=== PATIENT | male | born 1965 | race Caucasian/White ===

== ENCOUNTER 2024-11-12 13:52 | Observation (INO) | payer BC, SELFPAY ==
[2024-11-12 15:42] LABS: Absolute Basophils 0.1 K/uL (0-0.5); Absolute Lymphocytes (CBC) 1.2 K/uL (0.7-4.9); Absolute Monocytes 1.3 K/uL (0.1-1.3); Absolute Neutrophil 10.5 K/uL (1.8-8.0); Basophils % 0.4 % (0-1.3); Eosinophils % 0.3 % (0-4.4); Hematocrit 43.3 % (39.6-49.0); Hemoglobin 15.1 g/dL (13.6-17.9); Lymphocytes % 9.2 % (15.3-44.8); MCH 31.6 pg (27.0-35.0); MCHC 34.9 g/dL (32.0-36.0); MCV 90.4 fL (80-100); MPV 6.6 fL (7.6-11.3); Monocytes % 10.1 % (3.3-12.3); Platelets 227 thou/uL (152-406); RBC Red Blood Cell Count 4.79 M/uL (4.33-5.43); Red Cell Distribution Width 15.1 % (12.1-15.2)
[2024-11-12] MEDS ORDERED: CEFTRIAXONE 1000 MG/VIAL ONE (15:46)
[2024-11-12] MEDS ORDERED: CLINDAMYCIN 600MG/D5W 50 ML IV ONE ×2 (15:47→21:17)
[2024-11-12] MEDS ORDERED: MORPHINE 4 MG/ML SYR ONE (15:47)
[2024-11-12] MEDS ORDERED: NA CHLORIDE 0.9% 50 ML ONE (15:47)
[2024-11-12] MEDS ORDERED: ONDANSETRON 4 MG/2 ML VIAL ONE (15:47)
[2024-11-12 15:52] LABS: PT Prothrombin Time 12.4 SECONDS (10-13.0); PTT, Activated Partial Thromb 33.7 SECONDS (27.2-37.4); Protime INR 1.09
[2024-11-12] MEDS ORDERED: NA CHLORIDE 0.9% 1,000 ML ONE ×2 (15:58→21:16)
--- NOTE | 2024-11-12 16:07 | RAD REPORT ---
EXAM: Hand Left 3 View HISTORY: ANIMAL BITE COMPARISON: None FINDINGS: Bones: No acute fracture identified. Alignment:No significant malalignment. Degenerative changes:Degenerative changes are present at the fifth PIP joint. Other: No radiopaque foreign body. IMPRESSION: No acute osseous abnormality involving the imaged hand. No radiopaque foreign body.
[2024-11-12 16:08] LABS: Albumin 3.6 g/dL (3.4-5.0); Albumin/Globulin Ratio 1.1 (1.1-1.8); Anion Gap 8.8 mEq/L (5.0-15.0); Bilirubin Total 0.7 mg/dL (0.2-1.0); Globulin 3.3 g/dL (2.3-3.5); Potassium 3.8 mEq/L (3.5-5.1); Protein, Total 6.9 g/dL (6.4-8.2)
--- NOTE | 2024-11-12 16:16 | ER ---
Nurse's Notes [facility] Name: Brain Blnut Age: 58 yrs Sex: Male : 1965 Arrival Date: 11/12/2024 Time: 13:52 Bed 20 Private MD: Diagnosis: Bitten by cat;Cellulitis of right upper limb Presentation: 11/12 14:10 Chief complaint: Patient states: After a cat bite to his L hand on , he went to [facility]gent care and got antibiotics. Site is red, swollen, hot, and very painful now. No fever. Coronavirus screen: Client denies travel out of the [place] in the last 14 days. At this time, the client does not indicate any symptoms associated with coronavirus-19. Ebola Screen: Patient denies travel to an Ebola-affected area in the 21 days before illness onset. Initial Sepsis Screen: Does the patient meet any 2 criteria? No. Patient's initial sepsis screen is negative. Does the patient have a suspected source of infection? No. Patient's initial sepsis screen is negative. Risk Assessment: Do you want to hurt yourself or someone else? Patient reports no desire to harm self or others. Onset of symptoms was November 10, 2024. 14:10 Method Of Arrival: Ambulatory [facility] 14:10 Acuity: HELEN 3 ll1 Triage Assessment: 14:12 Bite description: bite sustained to left hand by a cat. General: Appears distressed, ll1 uncomfortable, Behavior is calm, cooperative, appropriate for age. Pain: Complains of pain in left hand Pain currently is 8 out of 10 on a pain scale. Quality of pain is described as aching, throbbing. Derm: cellulitis L hand. s/p cat bite Reports pain. Musculoskeletal: Reports pain in left hand. Injury Description: Puncture sustained to left hand. 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 - Infectious Disease History:: Denies. - Social history:: Smoking status: Patient reports the use of cigarette tobacco products, cigars. Screenin:30 [facility] ED Fall Risk Assessment (Adult) History of falling in the last 3 months, cm10 including since admission No falls in past 3 months (0 pts) Confusion or Disorientation No (0 pts) Intoxicated or Sedated No (0 pts) Impaired Gait No (0 pts) Mobility Assist Device Used No (0 pt) Altered Elimination No (0 pt) Score/Fall Risk Level 0 - 2 = Low Risk Oriented to surroundings, Maintained a safe environment, Hourly rounding (assess needs \T\ fall precautionary measures) done. Abuse screen: Denies threats or abuse. Denies injuries from another. Nutritional screening: No deficits noted. Tuberculosis screening: No symptoms or risk factors identified. Assessment: 15:16 Reassessment: Patient and/or family updated on plan of care and expected duration. Pain ll1 level reassessed. 15:30 General: Appears in no apparent distress. comfortable, Behavior is calm, cooperative, cm10 appropriate for age. Pain: Complains of pain in left hand Pain currently is 8 out of 10 on a pain scale. Neuro: No deficits noted. Level of Consciousness is awake, alert, obeys commands, Oriented to person, place, time, situation, Appropriate for age. Respiratory: No deficits noted. Airway is patent Respiratory effort is even, unlabored, Respiratory pattern is regular, symmetrical. Derm: Skin is intact, Skin is pink, warm \T\ dry. Redness and swelling noted to left hand. 16:20 Reassessment: PT noted to have rash along right arm along vein. Pt states that this cm10 happened after receiving morphine. Dr Church made aware and at bedside evaluating pt. Pt reports that he is itching where the rash is. Respirations even and unlabored. 17:13 Reassessment: Rash noted to have improved. cm10 19:00 Reassessment: Patient appears in no apparent distress at this time. Patient and/or kj2 family updated on plan of care and expected duration. Pain level reassessed. Patient is alert, oriented x 3, equal unlabored respirations, skin warm/dry/pink. 20:00 Reassessment: Patient appears in no apparent distress at this time. Patient and/or kj2 family updated on plan of care and expected duration. Pain level reassessed. Patient is alert, oriented x 3, equal unlabored respirations, skin warm/dry/pink. Vital Signs: 14:10 BP 129 / 76; Pulse 72; Resp 18; Temp 98.6; Pulse Ox 97% ; Weight 88.9 kg; Height 5 ft. ll1 11 in. ; Pain 8/10; 15:30 BP 113 / 65; Pulse 58; Resp 16; Pulse Ox 97% ; cm10 15:45 BP 108 / 72; Pulse 62; Resp 16; Pulse Ox 96% on R/A; cm10 16:00 BP 110 / 67; Pulse 63; Resp 16; Pulse Ox 97% on R/A; cm10 16:15 BP 120 / 83; Pulse 63; Resp 16; Pulse Ox 99% on R/A; cm10 16:30 BP 127 / 80; Pulse 70; Resp 19; Pulse Ox 99% on R/A; cm10 16:45 BP 115 / 70; Pulse 59; Resp 22; Pulse Ox 97% ; cm10 17:00 BP 116 / 72; Pulse 59; Resp 12; Pulse Ox 98% on R/A; cm10 17:30 BP 108 / 70; Pulse 58; Resp 19; Pulse Ox 96% ; cm10 17:45 BP 107 / 68; Pulse 58; Resp 14; Pulse Ox 97% on R/A; cm10 18:00 BP 105 / 58; Pulse 57; Resp 18; Pulse Ox 95% on R/A; cm10 19:00 BP 91 / 52; Pulse 55; Resp 18; Pulse Ox 100% ; kj2 20:00 BP 140 / 74; Pulse 58; Resp 20; Pulse Ox 100% on R/A; kj2 14:10 Body Mass Index 27.34 (88.90 kg, 180.34 cm) ll1 14:10 Pain Scale: Adult ll1 ED Course: 13:55 Patient arrived in ED. al6 14:03 [facility]C [facility] 14:03 Carlo Church MD is Attending Physician. dr5 14:12 Triage completed. ll1 14:12 Arm band placed on. ll1 15:10 Analisa Miramontes, NICANOR is Primary Nurse. cm10 15:16 Patient placed in an exam room, on a stretcher. ll1 15:26 Initial lab(s) drawn, by me, sent to lab. First set of blood cultures drawn by me. cm10 Inserted saline lock: 18 gauge in right forearm, using aseptic technique. Blood collected. Flushed with 10 mL NS. 15:30 Patient has correct armband on for positive identification. Bed in low position. Call cm10 light in reach. Side rails up X2. Client placed on continuous cardiac and pulse oximetry monitoring. NIBP monitoring applied. residential monitor on. 15:33 Ptt, Activated Sent. cm10 15:33 Protime (+inr) Sent. cm10 15:33 Lactate w/ 2H reflex if indic. Sent. cm10 15:33 CMP Sent. cm10 15:33 CBC with Diff Sent. cm10 15:54 Hand Left 3 View XRAY In Process Unspecified. EDMS 15:59 Inserted saline lock: 20 gauge in right antecubital area, using aseptic technique. cm10 Blood collected. Flushed with 10 mL NS. 15:59 Second set of blood cultures drawn by me. cm10 16:15 Naveen Stout is Hospitalizing Provider. dr5 11/13 06:26 Phosphorus Sent. rg5 06:26 Phosphorus Sent. rg5 06:26 Basic Metabolic Panel Sent. rg5 06:26 Basic Metabolic Panel Sent. rg5 06:26 CBC with Automated Diff Sent. rg5 06:26 CBC with Automated Diff Sent. rg5 06:27 Magnesium Sent. rg5 06:27 Magnesium Sent. rg5 15:57 No provider procedures requiring assistance completed. Patient admitted, IV remains in mb9 place. Administered Medications: 11/12 16:01 Drug: Rocephin IV 1 grams IV at per protocol once; Given slow IV push per pharmacy cm10 instructions Route: IV; Rate: per protocol; Site: right antecubital; 16:28 Follow up: Response: No adverse reaction; IV Status: Completed infusion; IV Intake: [id number] 16:06 Drug: NS 0.9% IV 1000 ml IV at 1000 ml once; to be given as a bolus over 60 minutes cm10 Route: IV; Rate: 1000 ml; Site: right forearm; 17:00 Follow up: Response: No adverse reaction; IV Status: Completed infusion; IV Intake: cm10 1000ml 16:10 Drug: morphine IVP or IV 4 mg IVP once over 4 mins Route: IVP; Infused Over: 4 mins; cm10 Site: right forearm; 16:20 Follow up: Response: Adverse reaction, Physician notified cm10 16:10 Drug: Ondansetron IVP 4 mg IVP once; over 2 minutes Route: IVP; Site: right forearm; cm10 16:28 Follow up: Response: No adverse reaction cm10 16:28 Drug: diphenhydrAMINE IVP 25 mg IVP once Route: IVP; Site: right antecubital; cm10 17:13 Follow up: Response: No adverse reaction cm10 17:19 Drug: Clindamycin IVPB 600 mg IVPB once over 30 mins; (mix in 50 mL) Route: IVPB; cm10 Infused Over: 30 mins; Site: right antecubital; 18:09 Follow up: Response: No adverse reaction; IV Status: Completed infusion; IV Intake: [id number] Medication: 11/13 15:58 VIS not applicable for this client. mb9 Intake: 11/12 16:28 IV: 50ml; Total: 50ml. cm10 17:00 IV: 1000ml; Total: 1050ml. cm10 18:09 IV: 50ml; Total: 1100ml. cm10 Outcome: 16:16 Decision to Hospitalize by Provider. dr5 11/13 15:58 Admitted to Med/surg mb9 Condition: stable Instructed on the need for admit, 16:29 Patient left the ED. mb9 Signatures: Dispatcher [employer] EDMS Ramon Devine RN RN ll1 Alina Copeland RN RN mb9 Analisa Miramontes RN RN cm10 Presley Reed RN RN rg5 Jennyfer Victor RN RN kj2 Miguelangel Zamora, SENIOR MAINFRAME DEVELOPER-C SENIOR MAINFRAME DEVELOPER-[facility]5 Ruth Gardiner
--- NOTE | 2024-11-12 16:16 | EDPHYS ---
Physician Documentation [facility] Name: Brain Blunt Age: 58 yrs Sex: Male : 1965 Arrival Date: 11/12/2024 Time: 13:52 Bed 20 Private MD: ED Physician Carlo Church HPI: 11/12 17:33 This 58 yrs old Male presents to ER via Ambulatory with complaints of Cat dr5 Bite - hand. 17:33 by a cat, at home. Onset: The symptoms/episode began/occurred 2 day(s) ago. Patient is dr5 a 58-year-old male coming in with cat bite to right hand that occurred 2 days ago. Patient reports that he went to urgent care and was prescribed doxycycline. Patient reports taking a dose yesterday afternoon as well as this morning with no relief or improvement. Patient reports that the cat is his own and is vaccinated for rabies. 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 - Infectious Disease History:: Denies. - Social history:: Smoking status: Patient reports the use of cigarette tobacco products, cigars. ROS: 17:33 Constitutional: as per hpi dr5 Exam: 17:33 Constitutional: This is a well developed, well nourished patient who is awake, alert, dr5 and in no acute distress. Head/Face: Normocephalic, atraumatic. Eyes: Pupils equal round and reactive to light, extra-ocular motions intact. Lids and lashes normal. Conjunctiva and sclera are non-icteric and not injected. Cornea within normal limits. Periorbital areas with no swelling, redness, or edema. Neck: Trachea midline, no thyromegaly or masses palpated, and no cervical lymphadenopathy. Supple, full range of motion without nuchal rigidity, or vertebral point tenderness. No Meningismus. Chest/axilla: Normal chest wall appearance and motion. Nontender with no deformity. No lesions are appreciated. Cardiovascular: Regular rate and rhythm with a normal S1 and S2. Normal PMI, no JVD. No pulse deficits. Respiratory: Lungs have equal breath sounds bilaterally, clear to auscultation. No rales, rhonchi or wheezes noted. No increased work of breathing, no retractions or nasal flaring. Back: No spinal tenderness. No costovertebral tenderness. Full range of motion. Skin: Warm, dry with normal turgor. Normal color with no rashes, no lesions, and no evidence of cellulitis. Neuro: Awake and alert, GCS 15, oriented to person, place, time, and situation. Cranial nerves II-XII grossly intact. Motor strength 5/5 in all extremities. Sensory grossly intact. Cerebellar exam normal. Normal gait. 17:33 Musculoskeletal/extremity: Extremities: noted in the right hand: decreased ROM, swelling, tenderness, ROM: limited active range of motion, Circulation is intact in all extremities. Sensation intact. Vital Signs: 14:10 BP 129 / 76; Pulse 72; Resp 18; Temp 98.6; Pulse Ox 97% ; Weight 88.9 kg; Height 5 ft. ll1 11 in. ; Pain 8/10; 15:30 BP 113 / 65; Pulse 58; Resp 16; Pulse Ox 97% ; cm10 15:45 BP 108 / 72; Pulse 62; Resp 16; Pulse Ox 96% on R/A; cm10 16:00 BP 110 / 67; Pulse 63; Resp 16; Pulse Ox 97% on R/A; cm10 16:15 BP 120 / 83; Pulse 63; Resp 16; Pulse Ox 99% on R/A; cm10 16:30 BP 127 / 80; Pulse 70; Resp 19; Pulse Ox 99% on R/A; cm10 16:45 BP 115 / 70; Pulse 59; Resp 22; Pulse Ox 97% ; cm10 17:00 BP 116 / 72; Pulse 59; Resp 12; Pulse Ox 98% on R/A; cm10 17:30 BP 108 / 70; Pulse 58; Resp 19; Pulse Ox 96% ; cm10 17:45 BP 107 / 68; Pulse 58; Resp 14; Pulse Ox 97% on R/A; cm10 18:00 BP 105 / 58; Pulse 57; Resp 18; Pulse Ox 95% on R/A; cm10 19:00 BP 91 / 52; Pulse 55; Resp 18; Pulse Ox 100% ; kj2 20:00 BP 140 / 74; Pulse 58; Resp 20; Pulse Ox 100% on R/A; kj2 14:10 Body Mass Index 27.34 (88.90 kg, 180.34 cm) ll1 14:10 Pain Scale: Adult ll1 MDM: 14:03 Medical Screening Exam initiated dr5 17:33 Differential diagnosis: superficial laceration, cellulitis, Abscess. Data reviewed: dr5 vital signs, nurses notes, lab test result(s), radiologic studies. Consideration of Admission/Observation Patient was admitted/placed on observation. I considered the following discharge prescriptions or medication management in the emergency department Medications were administered in the Emergency Department. See MAR. Care significantly affected by the following Social Determinants of Health: Poor access to healthcare and/or lack of insurance, Poor access to transportation, Problems related to employment. Counseling: I had a detailed discussion with the patient and/or guardian regarding the historical points, exam findings, and any diagnostic results supporting the discharge/admit diagnosis, the presence of at least one elevated blood pressure reading (>120/80) during this emergency department visit, lab results, the need for further work-up and treatment in the hospital. ED course: Patient was admitted for cellulitis of right hand. Blood cultures ordered as well as antibiotics given upon patient arrival. Will admit for continued IV antibiotics.. 11/12 14:27 Order name: Blood Culture Adult (2) dr5 11/12 14:27 Order name: CBC with Diff; Complete Time: 16:04 11/12 14:27 Order name: CMP; Complete Time: 16:15 11/12 14:27 Order name: Lactate w/ 2H reflex if indic.; Complete Time: 16:15 11/12 14:27 Order name: Protime (+inr); Complete Time: 16:04 11/12 14:27 Order name: Ptt, Activated; Complete Time: 16:04 11/12 17:04 Order name: Basic Metabolic Panel EDMS 11/12 17:04 Order name: Basic Metabolic Panel EDMS 11/12 17:04 Order name: CBC with Automated Diff EDMS 11/12 17:04 Order name: CBC with Automated Diff EDMS 11/12 17:04 Order name: Magnesium EDMS 11/12 17:04 Order name: Magnesium EDMS 11/12 17:04 Order name: Phosphorus EDMS 11/12 17:04 Order name: Phosphorus EDMS 11/12 14:27 Order name: Hand Left 3 View XRAY; Complete Time: 16:15 11/13 11:40 Order name: CT EDMS 11/12 14:27 Order name: Accucheck; Complete Time: 06:27 [facility] 11/12 14:27 Order name: Cardiac monitoring; Complete Time: 15:33 11/12 14:27 Order name: IV Saline Lock - Large Bore; Complete Time: 15:32 11/12 14:27 Order name: Labs collected and sent; Complete Time: 15:11/12 14:27 Order name: O2 Per Protocol; Complete Time: 15:33 11/12 14:27 Order name: O2 Sat Monitoring; Complete Time: 15:33 11/12 14:27 Order name: Vital Signs; Complete Time: 15:33 [facility] Administered Medications: 16:01 Drug: Rocephin IV 1 grams IV at per protocol once; Given slow IV push per pharmacy cm10 instructions Route: IV; Rate: per protocol; Site: right antecubital; 16:28 Follow up: Response: No adverse reaction; IV Status: Completed infusion; IV Intake: [id number] 16:06 Drug: NS 0.9% IV 1000 ml IV at 1000 ml once; to be given as a bolus over 60 minutes cm10 Route: IV; Rate: 1000 ml; Site: right forearm; 17:00 Follow up: Response: No adverse reaction; IV Status: Completed infusion; IV Intake: cm10 1000ml 16:10 Drug: morphine IVP or IV 4 mg IVP once over 4 mins Route: IVP; Infused Over: 4 mins; cm10 Site: right forearm; 16:20 Follow up: Response: Adverse reaction, Physician notified cm10 16:10 Drug: Ondansetron IVP 4 mg IVP once; over 2 minutes Route: IVP; Site: right forearm; cm10 16:28 Follow up: Response: No adverse reaction cm10 16:28 Drug: diphenhydrAMINE IVP 25 mg IVP once Route: IVP; Site: right antecubital; cm10 17:13 Follow up: Response: No adverse reaction cm10 17:19 Drug: Clindamycin IVPB 600 mg IVPB once over 30 mins; (mix in 50 mL) Route: IVPB; cm10 Infused Over: 30 mins; Site: right antecubital; 18:09 Follow up: Response: No adverse reaction; IV Status: Completed infusion; IV Intake: [id number] Disposition Summary: 11/12/24 16:16 Hospitalization Ordered Notes: Hospitalization Status: Inpatient Admission dr5 Provider: Naveen Stout Condition: Stable dr5 Problem: new dr5 Symptoms: are unchanged dr5 Bed/Room Type: Standard dr5 Location: Telemetry/MedSurg (Inpatient)(11/13/24 15:33) eb Room Assignment: [facility](11/13/24 15:33) eb Diagnosis - Bitten by cat dr5 - Cellulitis of right upper limb dr5 Forms: - Medication Reconciliation Form dr5 - SBAR form dr5 - Leadership Thank You Letter dr5 Signatures: Dispatcher [employer] EDMS Mindy Garcia Lynsay RN RN ll1 Letha Morgan rvAnalisa Guzmán RN RN cm10 Miguelangel Zamora, SIX HORSE HITCH DRIVER-C SIX HORSE HITCH DRIVER-Cdr5 Corrections: (The following items were deleted from the chart) 19:10 16:16 dr5 rv1 19:11 19:10 425 rv1 rv1 11/13 01:30 11/12 16:16 Telemetry/MedSurg (observation) dr5 rv1 11/13 01:30 11/12 19:11 rv1 rv1 11/13 15:33 01:30 BR ER HOLD rv1 eb 15:33 01:30 ERHOLD- rv1 eb
--- NOTE | 2024-11-12 16:22 | P.HP ---
Certification for Inpatient Patient admitted to: Observation With expected LOS: <2 Midnights Practitioner: I am a practitioner with admitting privileges, knowledge of patient current condition, hospital course, and medical plan of care. Services: Services provided to patient in accordance with Admission requirements found in Title 42 Section 412.3 of the Code of Federal Regulations Patient History Date of Service: 11/12/24 Reason for admission: Left hand cellulitis secondary to cat bite History of Present Illness: Brain Blunt is a 58 year old male with no significant PMHx presents to the ED reporting a cat bite to his left hand on 11/10/24. He went to [facility] on Thursday and has taken two doses of antibiotics prior to arrival. He reports intense pain to his left hand, on examination, erythema and swelling present. He was given morphine to his right arm IV making a red streak up his arm. Laboratory evaluation significant for WBC 13.10. Left hand x-ray reports "No acute osseous abnormality involving the imaged hand. No radiopaque foreign body." Brain will be admitted to hospitalist service for further treatment of Left hand cellulitis 2/2 cat bite. Allergies iodine Allergy (Verified 06/19/12 16:25) unknown Penicillins Allergy (Verified 06/19/12 16:25) Rash - Past Medical/Surgical History -: MRSA Past Surgical History: Patient denies surgical history - Family History Family History: Reviewed- Non-Contributory - Social History Smoking Status: Current every day smoker (Cigars) Review of Systems Other: Per HPI Physical Examination - Physical Exam General: Alert, In no apparent distress, Oriented x3 HEENT: Atraumatic, Normocephalic Neck: Supple, 2+ carotid pulse no bruit, JVD not distended Respiratory: Clear to auscultation bilaterally, Normal air movement Cardiovascular: Normal pulses, Regular rate/rhythm, Normal S1 S2 Capillary refill: <2 Seconds Gastrointestinal: Normal bowel sounds, Soft and benign Musculoskeletal: No clubbing Integumentary: Tenderness/swelling (Left hand), Other (Left hand erythema with swelling) Neurological: Normal speech, Normal tone - Studies Laboratory Data (last 24 hrs) 11/12/24 11/12/24 11/12/24 15:29 15:29 15:29 WBC 13.10 H Hgb 15.1 Hct 43.3 Plt Count 227 PT 12.4 INR 1.09 APTT 33.7 Sodium 135 L Potassium 3.8 BUN 15 Creatinine 0.97 Glucose 104 Total Bilirubin 0.7 AST 12 L ALT 19 Alkaline Phosphatase 64 Assessment and Plan - Plan Assessment and plan Left hand cellulitis secondary to cat bite Leukocytosis -Left hand x-ray reports "No acute osseous abnormality involving the imaged hand. No radiopaque foreign body" -Failed outpatient doxycycline, 2 doses taken - Rocephin and Cleocin given in the ED will continue on the floor - Follow blood culture Substance abuse - Smokes cigars daily - Cessation education provided DVT PPx SCDs Full code LOS 24-hour OBS Discharge Plan: Home Plan to discharge in: 24 Hours - Advance Directives Does patient have a Living Will: No Does patient have a Durable POA for Healthcare: No
[2024-11-12] MEDS ORDERED: DIPHENHYDRAMINE 50 MG/ML VIAL ONE (16:24)
[2024-11-12] MEDS ORDERED: ACETAMINOPHEN 325 MG TABLET PO PRN (16:59)
[2024-11-12] MEDS: NA CHLORIDE 0.9% 1,000 ML IV SCH (17:00)
[2024-11-12] MEDS: CLINDAMYCIN 600MG/D5W 50 ML IV SCH (21:00)
[2024-11-12] MEDS ORDERED: CLINDAMYCIN INJ 600 MG in NA CHLORIDE 0.9% 50 ML IV SCH (21:00)
[2024-11-12 23:03] VITALS: BMI 27.3
[2024-11-12] MEDS ORDERED: Oxycodone HCl/Acetaminophen 5/325 MG TAB ONE (23:22)
[2024-11-12] MEDS: Oxycodone HCl/Acetaminophen 5/325 MG TAB PO PRN (23:27)
[2024-11-13] MEDS ORDERED: NA CHLORIDE 0.9% 1,000 ML ONE ×2 (04:40→15:28)
[2024-11-13] MEDS ORDERED: CLINDAMYCIN 600MG/D5W 50 ML IV ONE ×2 (04:51→15:28)
[2024-11-13] MEDS ORDERED: Oxycodone HCl/Acetaminophen 5/325 MG TAB ONE ×2 (06:38→13:59)
[2024-11-13 07:07] LABS: Anion Gap 8.9 mEq/L (5.0-15.0); Magnesium 1.9 mg/dL (1.6-2.4); Phosphorus 2.8 mg/dL (2.5-4.9); Potassium 3.9 mEq/L (3.5-5.1)
[2024-11-13 07:16] LABS: Absolute Eosinophils 0.1 K/uL (0-0.5); Absolute Lymphocytes (CBC) 2.5 K/uL (0.7-4.9); Absolute Monocytes 1.4 K/uL (0.1-1.3); Absolute Neutrophil 6.3 K/uL (1.8-8.0); Basophils % 0.4 % (0-1.3); Eosinophils % 0.9 % (0-4.4); Hematocrit 43.1 % (39.6-49.0); MCH 31.6 pg (27.0-35.0); MCHC 34.7 g/dL (32.0-36.0); MCV 91.1 fL (80-100); MPV 7.2 fL (7.6-11.3); Monocytes % 13.7 % (3.3-12.3); Nucleated Red Blood Cells % 0.1 % (0-0); Platelets 233 thou/uL (152-406); RBC Red Blood Cell Count 4.73 M/uL (4.33-5.43); Red Cell Distribution Width 14.7 % (12.1-15.2)
[2024-11-13] MEDS: PIPER TAZO 3.375 GM in NA CHLORIDE 0.9% 100 ML IV SCH (09:35)
[2024-11-13] MEDS ORDERED: NA CHLORIDE 0.9% 100 ML ONE (09:44)
[2024-11-13] MEDS ORDERED: PIPERACIL/TAZO 3.375 GM VIAL IV ONE (09:44)
[2024-11-13] MEDS ORDERED: HYDROMORPHONE HCL 1 MG/ML INJ ONE (10:43)
[2024-11-13] MEDS: HYDROMORPHONE HCL 1 MG/ML INJ IV PRN (10:56)
--- NOTE | 2024-11-13 11:40 | RAD REPORT ---
EXAMINATION: Hand Left Wo Con CLINICAL INDICATION: Male, 58 years old.abscess r/o, cat bit to left index finger TECHNIQUE: CT above extremity was performed without contrast. Reformats were performed. One or more o f the following dose reduction techniques were used: Automated exposure control, adjustment of the mA and/or kV according to patient size, and/or iterative reconstruction. Unless otherwise specified, incidental findings do not require dedicated imaging follow-up. [id number]. COMPARISON: Yesterday radiograph FINDINGS: No left hand fracture identified. No fluid collection identified. No radiopaque foreign body. Skin th ickening is present along the dorsum of the hand could represent a cellulitis.. IMPRESSION: No left hand fracture, radiopaque foreign body, or abscess.
--- NOTE | 2024-11-13 12:35 | P.PN ---
Date of Service: 11/13/24 Subjective Able to move the left index finger slightly more today, some erythema and swelling still today Still with severe pain CT left hand reports "No left hand fracture, radiopaque foreign body, or abscess." Will attempt to transfer for further evaluation with a hand surgeon. Suspect tenosynovitis ROS 10 point ROS as noted above, otherwise negative Physical Exam General: Alert and Oriented x3, NAD HEENT: Atraumatic, Normocephalic Neck: Supple, 2+ carotid pulse no bruit, JVD not distended Respiratory: Clear BBS, Normal air movement, on RA Cardiovascular: Normal pulses, RRR, Normal S1 S2 Capillary refill: <2 Seconds Gastrointestinal: Normal bowel sounds, Soft and benign Musculoskeletal: No clubbing Integumentary: Tenderness/swelling (Left hand), Other (Left hand erythema with swelling) Neurological: Normal speech, Normal tone Vitals Reviewed Problem list Left hand cellulitis secondary to cat bite Suspect Tenosynovitis Leukocytosis- resolved Assessment and Plan Left hand cellulitis secondary to cat bite Suspect Tenosynovitis Leukocytosis- resolved -Left hand x-ray reports "No acute osseous abnormality involving the imaged hand. No radiopaque foreign body" -Failed outpatient doxycycline, 2 doses taken -Zosyn and cleocin today, Rocephin and Cleocin given in the ED -pain control -Follow blood culture- NGTD -elevate, ice pack Substance abuse - Smokes cigars daily - Cessation education provided DVT PPx SCDs Full code LOS 24-hour OBS Discharge Plan: Home Plan to discharge in: 24 Hours
[2024-11-13] MEDS ORDERED: CEFTRIAXONE 1,000 MG in NA CHLORIDE 0.9% 50 ML IVPB SCH (16:00)
[2024-11-13 16:56] VITALS: O2SAT 100
[2024-11-13] MEDS ORDERED: PIPER TAZO 3.375 GM in NA CHLORIDE 0.9% 100 ML IV SCH (17:00)
[2024-11-13] MEDS: Meropenem 1,000 MG in NA CHLORIDE 0.9% 100 ML IV SCH (17:07)
[2024-11-14 04:03] VITALS: BP 105/62; TEMP 97.5
--- NOTE | 2024-11-14 07:27 | P.DS ---
Admission Date: 11/12/24 Discharge Date: 11/14/24 Disposition: TRANSFER TO [facility] Discharge Condition: [facility]IR Reason for Admission: Left hand cellulitis secondary to cat bite Brief History of Present Illness: Diagnosis Left hand cellulitis secondary to cat bite Suspect Tenosynovitis Leukocytosis- resolved HPI 11/12/2024 Brain Blunt is a 58 year old male with no significant PMHx presents to the ED reporting a cat bite to his left hand on 11/10/24. He went to [facility] on Thursday and has taken two doses of antibiotics prior to arrival. He reports intense pain to his left hand, on examination, erythema and swelling present. He was given morphine to his right arm IV making a red streak up his arm. Laboratory evaluation significant for WBC 13.10. Left hand x-ray reports "No acute osseous abnormality involving the imaged hand. No radiopaque foreign body." Brain will be admitted to hospitalist service for further treatment of Left hand cellulitis 2/2 cat bite. Hospital Course: Left hand cellulitis secondary to cat bite Suspect Tenosynovitis Leukocytosis- resolved Patient tolerated IV antibiotics overnight with small improvement to active mobility of the left index finger. Left hand x-ray reports "No acute osseous abnormality involving the imaged hand. No radiopaque foreign body" Patient failed outpatient doxycycline, 2 doses taken Tolerated IV Zosyn and cleocin, Rocephin and Cleocin given in the ED Provided pain control Follow blood culture- NGTD Patient is needing to be evaluated by a hand surgeon due to the limited improvement overnight, he was accepted to [facility] by Dr. Subhash Saab. Substance abuse Patient reports smoking cigars daily, Cessation education provided On 11/14/24, Patient was transferred to [facility] at 0439. Nursing staff reports no acute distress and conversing well. Physical Exam General: AAO x3, NAD Neck: Supple, 2+ carotid pulse no bruit, JVD not distended Respiratory: Nonlabored breathing, Normal air movement, on RA Cardiovascular: regular rate and rhythm normal S1 S2 Capillary refill: <2 Seconds Gastrointestinal: Soft and nontender on palpation Musculoskeletal: No clubbing Integumentary: Tenderness/swelling (Left hand), Other (Left hand erythema with swelling) Neurological: Normal speech, Normal tone Vital Signs/Physical Exam: Temp Pulse Resp BP Pulse Ox 97.5 F 48 L 16 105/62 96 11/14/24 04:00 11/14/24 04:00 11/14/24 04:00 11/14/24 04:00 11/14/24 04:00 Laboratory Data at Discharge: WBC 10.30 thou/uL (4.3-10.9) 11/13/24 06:30 Hgb 15.0 g/dL (13.6-17.9) 11/13/24 06:30 Hct 43.1 % (39.6-49.0) 11/13/24 06:30 Plt Count 233 thou/uL (152-406) 11/13/24 06:30 PT 12.4 SECONDS (10-13.0) 11/12/24 15:29 INR 1.09 11/12/24 15:29 APTT 33.7 SECONDS (27.2-37.4) 11/12/24 15:29 Sodium 138 mEq/L (136-145) 11/13/24 06:30 Potassium 3.9 mEq/L (3.5-5.1) 11/13/24 06:30 BUN 12 mg/dL (7-18) 11/13/24 06:30 Creatinine 0.83 mg/dL (0.70-1.30) 11/13/24 06:30 Glucose 103 mg/dL (74-106) 11/13/24 06:30 Phosphorus 2.8 mg/dL (2.5-4.9) 11/13/24 06:30 Magnesium 1.9 mg/dL (1.6-2.4) 11/13/24 06:30 Total Bilirubin 0.7 mg/dL (0.2-1.0) 11/12/24 15:29 AST 12 U/L (15-37) L 11/12/24 15:29 ALT 19 U/L (16-61) 11/12/24 15:29 Alkaline Phosphatase 64 U/L (45-117) 11/12/24 15:29 Followup: OOT,JuwanOT [Primary Care Provider] -
== END 2024-11-14 04:48 | disposition short-term general hospital (02) ==
LOC: ER 13:52 → ERHOLD 16:59 → 2ND 11-13 15:59
PROVIDERS: ADMIT Internal Medicine; ATTEND Internal Medicine
DX: L03.114 Cellulitis of left upper limb (principal); D72.829 Elevated white blood cell count, unspecified; S61.452A Open bite of left hand, initial encounter; F17.210 Nicotine dependence, cigarettes, uncomplicated; Z71.6 Tobacco abuse counseling; W55.01XA Bitten by cat, initial encounter; Y93.9 Activity, unspecified; Y92.9 Unspecified place or not applicable
CPT/HCPCS: 87040 ×2; 85025 ×2; 80048; 36415; 83735; 84100; 85610; 83605; 85730; 80053; 73200; 73130; 99285; J1200; J2543; J2185 ×2; J1171; J2405; J7030 ×4; J0696; G0378